=== PATIENT | male | born 1995 | race African-American/Black ===

== ENCOUNTER 2018-04-10 09:15 | Emergency (ER) | payer MEDICAID ==
[~2018-04-10] VITALS: Ht 182.9 cm; Wt 112.0 kg
[2018-04-10 09:28] VITALS: BP 129/78
[2018-04-10] MEDS ORDERED: ALBUTEROL (0.083%) 2.5MG/3ML NEB HHN STA (10:21)
== END 2018-04-10 11:00 | disposition home or self-care (01) ==
LOC: ER 09:15
DX: J20.9 Acute bronchitis, unspecified (principal); F17.210 Nicotine dependence, cigarettes, uncomplicated; Z71.6 Tobacco abuse counseling
CPT/HCPCS: 71045; 99283; 99406; J7611

== ENCOUNTER 2019-01-16 07:21 | Emergency (ER) | payer MEDICAID ==
[~2019-01-16] VITALS: Ht 177.8 cm; Wt 91.0 kg
[2019-01-16] MEDS ORDERED: IBUPROFEN 600MG TABLET PO ONE (09:00)
[2019-01-16 09:30] VITALS: BP 127/62
== END 2019-01-16 09:45 | disposition home or self-care (01) ==
LOC: ER 07:21
DX: R41.0 Disorientation, unspecified (principal); R53.83 Other fatigue; J45.909 Unspecified asthma, uncomplicated; Z04.1 Encounter for examination and observation following transport accident; Z88.0 Allergy status to penicillin
CPT/HCPCS: 93005; 99283

== ENCOUNTER 2020-07-14 18:41 | Emergency (ER) | payer MEDICAID ==
[~2020-07-14] VITALS: Ht 188 cm; Wt 98.0 kg
[2020-07-14] MEDS ORDERED: LORAZEPAM 2MG/ML CPJ IV ONE (19:15)
[2020-07-14] MEDS ORDERED: SODIUM CHLORIDE 0.9% 1,000 ML IV ONE (19:15)
[2020-07-14] MEDS ORDERED: HALOPERIDOL LACTATE 5MG/ML VIAL IM ONE (19:30)
[2020-07-14 20:51] LABS: BASOPHILS % 1.1 % (0.0-2.0); EOSINOPHILS % 0.9 % (0.0-5.0); HEMATOCRIT. 35.2 % (42.0-52.0); HEMOGLOBIN. 12.1 g/dL (14.0-18.0); LYMPHOCYTES % 26.7 % (20.0-50.0); MEAN CORPUSCULAR HEMOGLOBIN 27.5 pg (28.0-32.0); MEAN CORPUSCULAR VOLUME 79.8 fL (80.0-94.0); MEAN PLATELET VOLUME 8.5 fl (7.4-10.4); MONOCYTES % 6.8 % (2.0-8.0); NEUTROPHILS % 64.5 % (40.0-76.0); PLATELET 229 x1000/uL (130-400); RED BLOOD CELL COUNT 4.42 mill/uL (4.7-6.1); RED CELL DISTRIBUTION WIDTH 13.5 % (11.6-14.6)
[2020-07-14 20:57] LABS: CHLORIDE 108 mEq/L (98-107)
[2020-07-14 21:02] LABS: ETHANOL BLOOD < 10 mg/dL
[2020-07-14 21:07] LABS: CLARITY URINE CLEAR (CLEAR); COLOR URINE YELLOW (YELLOW); KETONES URINE 1+ (NEGATIVE); LEUKOCYTE ESTERASE URINE NEGATIVE (NEGATIVE); NITRITE URINE NEGATIVE (NEGATIVE); OCCULT BLOOD URINE NEGATIVE (NEGATIVE); PROTEIN URINE NEGATIVE (NEGATIVE); SPECIFIC GRAVITY URINE 1.016 (1.005-1.030); UROBILINOGEN URINE 0.2 E.U./dL (0.2-1.0)
[2020-07-14 21:18] LABS: *AMPHETAMINES SCREEN URINE NEGATIVE (NEGATIVE); *BARBITURATES SCREEN URINE NEGATIVE (NEGATIVE); *BENZODIAZEPINES SCREEN URINE NEGATIVE (NEGATIVE); *COCAINE SCREEN URINE PRESUMTIVE POSITIVE (NEGATIVE)
[2020-07-14 21:19] LABS: CANNABINOID URINE SCREEN PRESUMTIVE POSITIVE (NEGATIVE); METHADONE URINE SCREEN NEGATIVE (NEGATIVE); OPIATES URINE SCREEN NEGATIVE (NEGATIVE); PHENCYCLIDINE URINE SCREEN NEGATIVE (NEGATIVE)
[2020-07-14] MEDS ORDERED: KCL 10MEQ/50ML PREMIX 50 ML IV NR (21:45)
[2020-07-15 12:37] VITALS: BP 122/85
== END 2020-07-15 13:02 | disposition home or self-care (01) ==
LOC: ER 18:41
DX: T40.5X1A Poisoning by cocaine, accidental (unintentional), initial encounter (principal); T40.7X1A Poisoning by cannabis (derivatives), accidental (unintentional), initial encounter; E87.6 Hypokalemia; R45.851 Suicidal ideations; J45.909 Unspecified asthma, uncomplicated; F79 Unspecified intellectual disabilities; Z78.1 Physical restraint status; Z88.0 Allergy status to penicillin; Y92.89 Other specified places as the place of occurrence of the external cause
CPT/HCPCS: 36415; 80053; 80305; 80320; 81003; 82962; 83735; 85025; 93005; 96365; 96372; 96375; 99285; J1630; J2060; J3480; J7030; G0480